=== PATIENT | female | born 1995 | race Caucasian/White ===

== ENCOUNTER 2017-04-18 12:37 | Emergency (ER) | payer MEDICAID ==
[2017-04-18 12:42] VITALS: TEMP 98.1; O2SAT 97
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
[2017-04-18] MEDS ORDERED: AZITHROMYCIN 250 MG TAB PO ONE (14:05)
[2017-04-18 17:33] VITALS: BP 90/60; PULSE 64; RESP 16
== END 2017-04-18 16:30 | disposition home or self-care (01) ==
LOC: EEVIPCON 12:37
DX: T74.21XA Adult sexual abuse, confirmed, initial encounter (principal)
CPT/HCPCS: J0696